=== PATIENT | female | born 1945 | race Hispanic/Latino ===

== ENCOUNTER 2017-05-03 12:04 | Emergency (ER) | payer MEDICARE ==
[2017-05-03 12:04] VITALS: BMI 31.7
[2017-05-03 12:16] VITALS: TEMP 98.3; O2SAT 97
--- NOTE | 2017-05-03 12:41 | C.PDOC ---
History Of Present Illness 72 yo female come in for evaluation of Left foot and ankle pain, swelling developed 2 weeks ago after sustained mechanical fall. Pt sts, " twisted my ankle and since then my foot still swollen and hurts". Pt admits, ambulate tat home with walker. Otherwise., pt denies head injury, LOC, syncope, headache, N/V , visual changes, focal deficits, denies obvious deformity to Left foot, denies new weakness, sensory or vascular deficits to left foot. Time Seen by Provider: 05/03/17 12:24 Chief Complaint (Nursing): Lower Extremity Problem/Injury History Per: Patient Past Medical History Reviewed: Historical Data, Nursing Documentation, Vital Signs Vital Signs: Last Vital Signs Temp 98.3 F 05/03/17 12:12 Pulse 82 05/03/17 12:12 Resp 16 05/03/17 12:12 BP 170/85 H 05/03/17 12:12 Pulse Ox 97 05/03/17 13:16 - Medical History PMH: Anemia (Acute Blood loss), Arthritis, Colonic Polyps, Depression, Fractures , HTN, Hypothyroidism, Osteoporosis, Seizures Denies: Chronic Kidney Disease Other Surgeries: not contributory - [facility] Procedures ESOPHAGOGASTRODUODENOSCOPY [EGD] W/CLOSED BIOPSY (01/02/15) EXCISION OF LEFT HIP JOINT, OPEN APPROACH (09/15/15) EXCISION OF TOE NAIL, EXTERNAL APPROACH (09/20/15) GAIT TRAINING/FUNCTIONAL AMBULATION TREATMENT (09/20/15) HOME MANAGEMENT TREATMENT (09/20/15) RELEASE LEFT UPPER LEG TENDON, OPEN APPROACH (09/15/15) REPLACE L HIP JT, FEMORAL W SYNTH SUB, CEMENT, OPEN (09/15/15) REPOSITION LEFT UPPER FEMUR WITH INT FIX, OPEN APPROACH (09/15/15) RESPIRATORY VENTILATION, LESS THAN 24 CONSECUTIVE HOURS (09/15/15) THERAPEUTIC EXERCISE TREATMENT OF MUSCULOSK WHOLE (09/20/15) TRANSFUSE NONAUT RED BLOOD CELLS IN PERIPH ART, PERC (09/15/15) Family History: States: Unknown Family Hx - Social History Hx Alcohol Use: No Hx Substance Use: No - Immunization History Hx Tetanus Toxoid Vaccination: No Hx Influenza Vaccination: Yes Hx Pneumococcal Vaccination: No Review Of Systems Except As Marked, All Systems Reviewed And Found Negative. Eyes: Negative for: Vision Change ENT: Negative for: Ear Discharge, Nose Discharge Cardiovascular: Negative for: Chest Pain Gastrointestinal: Negative for: Nausea, Vomiting Genitourinary: Negative for: Incontinence Musculoskeletal: Positive for: Leg Pain, Foot Pain Skin: Negative for: Rash, Bruising Neurological: Negative for: Weakness, Numbness, Altered Mental Status, Headache , Dizziness Physical Exam - Physical Exam Appears: Well, Non-toxic, No Acute Distress Skin: Normal Color, Warm, No Ecchymosis Head: Atraumatic, Normacephalic Eye(s): bilateral: PERRL Nose: No Deformity Neck: No Midline Cervical Tenderness, No Paracervical Tenderness, No Step Off Deformity, Supple Back: No Vertebral Tenderness, No Paraspinal Tenderness Extremity: Normal ROM (mild discomofrt to Left ankle flexion/extension due to pain), Tenderness (Left ankle/foot: tenderness over 5th MTB amd left lateral malleolus.), No Calf Tenderness, Capillary Refill (less than 2sec to left foot) , No Deformity, Swelling (diffuse Left foot edema, non-pitting) Neurological/Psych: Oriented x3, Normal Speech, Normal Motor, Normal Sensation, Normal Reflexes ED Course And Treatment O2 Sat by Pulse Oximetry: 97 - Other Rad Left foot X-Ray: Interpreted by Me, Viewed By Me Interpretation: distal 5th MTB fx, angulated Left ankle, tib/fib, knee X-Ray: Interpreted by Me, Viewed By Me Interpretation: (+)DJD, no acute fx Progress Note: [employer]itor Pack [employer] Operator resident called for consult and pt was evaluated. Case discussed with attending and SPlint/cast shoe applied. Pt was advised directly on care by adjunct business instructor, non-weight bearing. Follow up with scheduled for 05/10/17. Pt understand, stable for discharge now. Disposition Counseled Patient/Family Regarding: Studies Performed, Diagnosis, Need For Followup, Rx Given - Disposition Referrals: Fabiana Hay DPM [Staff Provider] - Disposition: HOME/ ROUTINE Disposition Time: 13:01 Condition: STABLE Additional Instructions: FOLLOW UP WITH ON 05/10/17 FOR RE-EVALUATION AND FURTHER TREATMENT. KEEP SPLINT APPLIED NON-WEIGHT BEARING RETURN TO ED IF ANY WORSENING OR NEW CHANGES. Prescriptions: traMADol [Ultram] 50 mg PO TID #7 tab Instructions: Foot Fracture in Adults (ED) Forms: [employer] (Hungarian) - Clinical Impression Clinical Impression: Metatarsal fracture
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
--- NOTE | 2017-05-03 14:27 | RAD ---
PROCEDURE: Left Knee Radiographs. HISTORY: COMPARISON: None available. FINDINGS: Rotated lateral view. BONES: No acute displaced fracture. Osseous demineralization. Degenerative changes. JOINTS: No dislocation. Medial compartment joint space narrowing. JOINT EFFUSION: No significant joint effusion. OTHER FINDINGS: None. IMPRESSION: Osseous demineralization. Degenerative changes. No acute displaced fracture, dislocation, or significant joint effusion identified.If symptoms persist, or if there is continued clinical concern, x-ray follow-up in 7-10 days should be considered.
--- NOTE | 2017-05-03 14:27 | RAD ---
PROCEDURE: Radiographs of the left tibia and fibula. HISTORY: injury COMPARISON: None available. TECHNIQUE: Frontal and lateral views obtained. FINDINGS: BONES: Osseous demineralization. Degenerative changes. No acute displaced fracture. JOINT SPACES: No dislocation. OTHER FINDINGS: Soft tissues appear unremarkable. Vascular calcifications. No evidence of radiopaque foreign body. IMPRESSION: No acute displaced fracture, dislocation, or significant joint effusion identified. If symptoms persist, or if there is continued clinical concern, x-ray follow-up in 7-10 days should be considered.
--- NOTE | 2017-05-03 14:28 | RAD ---
PROCEDURE: Left Ankle Radiographs. HISTORY: injury COMPARISON: Correlation made with concurrent radiographs of the left foot and left tibia/ fibula. FINDINGS: BONES: No evidence of acute displaced fracture nor dislocation. Osseous structures appear intact. Talar dome intact. Tiny plantar and small posterior calcaneal enthesophytes. JOINTS: Ankle mortise maintained. No significant osteoarthritis. SOFT TISSUES: There is mild soft tissue swelling overlying the lateral malleolus OTHER FINDINGS: None. IMPRESSION: No acute fractures. Mild lateral soft swelling.
--- NOTE | 2017-05-03 14:34 | RAD ---
PROCEDURE: Left Foot Radiographs. HISTORY: injury COMPARISON: None available. FINDINGS: BONES: Osseous demineralization limits evaluation for acute fracture lines. Small calcaneal enthesophyte. Small heel spur. Acute mildly displaced oblique fracture of the distal 5th metatarsal. JOINTS: No dislocation. SOFT TISSUES: Soft tissue swelling. No evidence of radiopaque foreign body. OTHER FINDINGS: None. IMPRESSION: Acute mildly displaced oblique fracture of the distal 5th metatarsal. Soft tissue swelling.
[2017-05-03 15:48] VITALS: BP 142/78; PULSE 78; RESP 18
== END 2017-05-03 15:49 | disposition home or self-care (01) ==
LOC: C.ER 12:04
DX: S92.352A Displaced fracture of fifth metatarsal bone, left foot, initial encounter for closed fracture (principal); W18.39XA Other fall on same level, initial encounter; Y93.89 Activity, other specified; Y92.008 Other place in unspecified non-institutional (private) residence as the place of occurrence of the external cause